=== PATIENT | female | born 1970 | race Asian ===

== ENCOUNTER → 2017-02-17 | Outpatient (CLI) | payer BC ==
[2017-02-17 06:27] LABS: ADD SCAN DIFF NO
[2017-02-17 07:01] LABS: BASOPHIL # 0.1 10^3/ul (0.0-0.1); BASOPHILS % 0.5 % (0.0-2.0); EOSINOPHILS # 0.4 10^3/ul (0.0-0.5); EOSINOPHILS % 4.3 % (0.0-7.0); HEMATOCRIT 41.3 % (37.0-47.0); HEMOGLOBIN 13.4 g/dl (12.0-16.0); LYMPHOCYTES # 2.5 10^3/ul (0.8-2.9); LYMPHOCYTES % 24.8 % (15.0-51.0); MEAN CORPUSCULAR HGB CONC 32.4 g/dl (32.0-37.0); MEAN CORPUSCULAR VOLUME 89.4 fl (82.0-101.0); MEAN PLATELET VOLUME 10.7 fl (7.4-10.4); MONOCYTE # 0.7 10^3/ul (0.3-0.9); MONOCYTES % 6.3 % (0.0-11.0); NEUTROPHIL # 6.5 10^3/ul (1.6-7.5); NEUTROPHILS % 63.7 % (39.0-77.0); PLATELET COUNT 251 10^3/UL (140-415); RED BLOOD COUNT 4.62 10^6/ul (4.20-5.40); RED CELL DISTRIBUTION WIDTH 12.5 % (11.5-14.5); WHITE BLOOD COUNT 10.3 10^3/ul (4.8-10.8)
[2017-02-17 07:13] LABS: ALBUMIN 4.9 g/dl (3.3-4.9); ALBUMIN/GLOBULIN RATIO 1.58; BILIRUBIN,INDIRECT 0.6 mg/dl (0-1.1); BILIRUBIN,TOTAL 0.6 mg/dl (0.2-1.3); CALCIUM 9.4 mg/dl (8.4-10.2); CHOL/HDL RATIO 3.8 RATIO; CREATININE 0.66 mg/dl (0.44-1.00); POTASSIUM 4.3 mmol/L (3.5-5.1)
== END | disposition home or self-care (01) ==
LOC: LAB 05:45
PROVIDERS: ATTEND Internal Medicine
DX: E78.5 Hyperlipidemia, unspecified (principal); R73.03 Prediabetes
CPT/HCPCS: 80053; 80061; 83036; 85025

== ENCOUNTER 2017-06-20 06:51 | Day surgery (SDC) | payer BC, OTHER ==
[~2017-06-20] VITALS: Ht 165.1 cm; Wt 66.5 kg
[2017-06-20 08:00] VITALS: Ht 165.1 cm; Wt 66.5 kg
[2017-06-20 08:53] VITALS: BP 117/68; PULSE 63; RESP 18
--- NOTE | 2017-06-20 09:36 | OPPN ---
Date/Time of Note Date/Time of Note DATE: 06/20/17 TIME: 09:33 Operative Report Preoperative Diagnosis Change in bowel habit Postoperative Diagnosis Small rectal polyp was removed Internal hemorrhoids Operation/Procedure Performed Colonoscopy and biopsy Surgeon see signature line training program assistant None Anesthesia: moderate sedation Estimated blood loss: none Transfusion Required none Specimen Rectal polyp Grafts/Implants none Complications none OLGA NELSON MD Jun 20, 2017 09:36
[2017-06-20] MEDS ORDERED: MIDAZOLAM 1 MG/ML 2 ML INJ ONE ×3 (09:46)
[2017-06-20] MEDS ORDERED: FENTAnyl 50 MCG/ML VIAL ONE (09:46)
[2017-06-20 10:00] VITALS: BP 106/61; PULSE 60; RESP 20
--- NOTE | 2017-06-20 12:16 | GILP ---
DATE OF PROCEDURE: 06/20/2017 NAME OF THE PROCEDURE: Colonoscopy and biopsy. SURGEON: Kishan Parada MD. PREOPERATIVE DIAGNOSIS: Change in bowel habits. POSTOPERATIVE DIAGNOSES: 1. Colonoscopy all the way to the cecum. 2. Small rectal polyp was removed using biopsy forceps. 3. Internal hemorrhoids. INDICATIONS FOR PROCEDURE: The patient is a 46-year-old female patient who noticed a sudden change in the bowel habits and the feeling of inadequate evacuation after the bowel movement. The patient was scheduled for colonoscopy for further evaluation. The procedure and possible complications were well explained to the patient. She understood and consented to the procedure. DESCRIPTION OF PROCEDURE: Under the influence of fentanyl and Versed, the colonoscope was carefully introduced into the rectum. Under direct vision, it was advanced all the way to the cecum. FINDINGS: The patient had a small rectal polyp and it was removed using biopsy forceps. She was noted to have internal hemorrhoids. She tolerated the procedure very well. There was no complication from the procedure. At the end of procedure, she was awake with stable vital signs and she was discharged home in the care of her family. IMPRESSION: 1. Colonoscopy all the way to the cecum. 2. Small rectal polyp was removed using biopsy forceps. 3. Internal hemorrhoids. PLAN: 1. Await histopathology report. 2. Advised high-fiber diet. 3. Next screening colonoscopy in 10 years. Dictated By: MD ERNESTINA Marroquin/sandy/lashaun /Document#: [id number]
== END 2017-06-20 10:30 | disposition home or self-care (01) ==
LOC: GIL 06:51 → MERGE 06:51 → GIL 07:01
PROVIDERS: ATTEND Internal Medicine Gastroenterology
DX: K63.5 Polyp of colon (principal); R19.4 Change in bowel habit; K64.8 Other hemorrhoids
CPT/HCPCS: 45380; 84703; J2250; J3010

== ENCOUNTER → 2018-09-09 | Outpatient (CLI) | END | disposition home or self-care (01) ==

== ENCOUNTER → 2019-03-26 | Outpatient (CLI) | payer BC | END | disposition home or self-care (01) | LOC: LAB 10:39 | PROVIDERS: ATTEND Internal Medicine | DX: R73.03 Prediabetes (principal); E78.5 Hyperlipidemia, unspecified; D64.9 Anemia, unspecified; D53.9 Nutritional anemia, unspecified | CPT/HCPCS: 80053; 80061; 81001; 82306; 83036; 84436; 84443; 85025 ==

== ENCOUNTER → 2019-04-05 | Outpatient (CLI) | payer BC | END | disposition home or self-care (01) | LOC: LAB 15:24 | PROVIDERS: ATTEND Internal Medicine | DX: K85.90 Acute pancreatitis without necrosis or infection, unspecified (principal); N39.0 Urinary tract infection, site not specified | CPT/HCPCS: 74018; 80053; 81001; 82150; 83690; 85025 ==